=== PATIENT | female | born 1975 | race African-American/Black ===

== ENCOUNTER 2018-07-12 20:11 | Emergency (ER) | payer SELFPAY ==
[~2018-07-12] VITALS: Ht 167.6 cm; Wt 75.7 kg
[2018-07-12 20:32] VITALS: Ht 167.6 cm; Wt 75.7 kg
[2018-07-13 01:59] VITALS: BP 115/57
== END 2018-07-13 01:59 | disposition home or self-care (01) ==
LOC: ED 20:11
DX: S16.1XXA Strain of muscle, fascia and tendon at neck level, initial encounter (principal); S39.012A Strain of muscle, fascia and tendon of lower back, initial encounter; V48.6XXA Car passenger injured in noncollision transport accident in traffic accident, initial encounter; Y93.I9 Activity, other involving external motion; Y92.488 Other paved roadways as the place of occurrence of the external cause; Y99.8 Other external cause status

== ENCOUNTER 2019-10-10 07:15 | Emergency (ER) | payer OTHER ==
[~2019-10-10] VITALS: Ht 167.6 cm; Wt 71.2 kg
[2019-10-10 07:57] VITALS: Ht 167.6 cm; Wt 71.2 kg
[2019-10-10 10:35] VITALS: BP 116/52
== END 2019-10-10 10:35 | disposition home or self-care (01) ==
LOC: ED 07:15
DX: M77.11 Lateral epicondylitis, right elbow (principal); W20.8XXA Other cause of strike by thrown, projected or falling object, initial encounter; Y93.89 Activity, other specified; Y92.89 Other specified places as the place of occurrence of the external cause; Y99.8 Other external cause status